=== PATIENT | male | born 1990 | race Caucasian/White ===

== ENCOUNTER → 2020-03-10 08:00 | Outpatient (CLI) | payer OTHER | END | disposition home or self-care (01) | LOC: PPH VACUNA 08:00 | DX: Z23 Encounter for immunization (principal) ==

== ENCOUNTER 2020-12-12 07:00 | Outpatient (CLI) | payer OTHER | END 2020-12-12 07:25 | disposition home or self-care (01) | LOC: PPH VACUNA 07:00 | PROVIDERS: ATTEND Emergency Medicine Pediatric Emergency Medicine | DX: Z23 Encounter for immunization (principal) ==

== ENCOUNTER 2021-01-28 09:00 | Outpatient (CLI) | payer OTHER | END 2021-01-28 09:15 | disposition home or self-care (01) | LOC: PPH VACUNA 09:00 | PROVIDERS: ATTEND Emergency Medicine Pediatric Emergency Medicine | DX: Z23 Encounter for immunization (principal) ==

== ENCOUNTER 2021-02-04 06:17 | Outpatient (CLI) | payer OTHER | END 2021-02-04 06:19 | disposition home or self-care (01) | LOC: LAB 06:17 | DX: E23.0 Hypopituitarism (principal); E78.2 Mixed hyperlipidemia; R94.6 Abnormal results of thyroid function studies ==

== ENCOUNTER 2021-11-11 08:33 | Outpatient (CLI) | payer OTHER | END 2021-11-11 08:38 | disposition home or self-care (01) | LOC: PPH VACUNA 08:33 | PROVIDERS: ATTEND Emergency Medicine Pediatric Emergency Medicine | DX: Z23 Encounter for immunization (principal) ==

== ENCOUNTER 2022-02-03 06:38 | Outpatient (CLI) | payer OTHER | END 2022-02-03 06:39 | disposition home or self-care (01) | LOC: LAB 06:38 | DX: E23.0 Hypopituitarism (principal); E78.2 Mixed hyperlipidemia; E53.8 Deficiency of other specified B group vitamins; E55.9 Vitamin D deficiency, unspecified ==

== ENCOUNTER 2022-06-21 07:29 | Outpatient (CLI) | payer OTHER | END 2022-06-21 07:36 | disposition home or self-care (01) | LOC: LAB 07:29 | DX: E56.8 Deficiency of other vitamins (principal); E53.8 Deficiency of other specified B group vitamins; E23.0 Hypopituitarism ==

== ENCOUNTER 2022-10-14 08:10 | Outpatient (CLI) | payer OTHER | END 2022-10-14 08:20 | disposition home or self-care (01) | LOC: LAB 08:10 | DX: E89.3 Postprocedural hypopituitarism (principal); R73.03 Prediabetes; E78.5 Hyperlipidemia, unspecified ==

== ENCOUNTER 2022-11-19 09:30 | Outpatient (CLI) | payer OTHER | END 2022-11-19 09:40 | disposition home or self-care (01) | LOC: PPH VACUNA 09:30 | PROVIDERS: ATTEND Emergency Medicine Pediatric Emergency Medicine | DX: Z23 Encounter for immunization (principal) ==

== ENCOUNTER 2024-01-02 12:30 | Outpatient (CLI) | payer OTHER | END 2024-01-02 12:45 | disposition home or self-care (01) | LOC: PPH VACUNA 12:30 | PROVIDERS: ATTEND Emergency Medicine Pediatric Emergency Medicine | DX: Z23 Encounter for immunization (principal) ==

== ENCOUNTER 2024-07-15 15:36 | Emergency (ER) | payer OTHER ==
[~2024-07-15] VITALS: Ht 172.7 cm; Wt 81.6 kg
== END 2024-07-15 17:17 | disposition home or self-care (01) ==
LOC: ER 15:36
DX: S92.515A Nondisplaced fracture of proximal phalanx of left lesser toe(s), initial encounter for closed fracture (principal); X58.XXXA Exposure to other specified factors, initial encounter; Y93.89 Activity, other specified; Y92.018 Other place in single-family (private) house as the place of occurrence of the external cause; Y99.9 Unspecified external cause status

== ENCOUNTER 2024-10-19 15:34 | Emergency (ER) | payer OTHER ==
[~2024-10-19] VITALS: Ht 170.2 cm; Wt 84.4 kg
[2024-10-19] MEDS ORDERED: GUAIFENESIN/DEXTROMETHORPHAN 100MG/10ML BLIST.PACK PO ONE (16:15)
[2024-10-19] MEDS ORDERED: CETIRIZINE HCL 5 MG/5 ML ML PO ONE (16:15)
[2024-10-19] MEDS ORDERED: CETIRIZINE HCL 5MG/5ML BLIST.PACK PO ONE (16:19)
[2024-10-19] MEDS ORDERED: GUAIFENESIN 200 MG/10 ML BLIST.PACK PO ONE (16:19)
[2024-10-19 16:25] LABS: BASO % 0.9 % (0.1-1.2); EOS # 0.08 (0.04-0.54); EOS % 0.9 % (0.7-7.0); LYMPH # 1.11 (1.18-3.74); LYMPH % 12.4 % (19.3-53.1); MEAN PLATELET VOLUME 8.90 fl (9.4-12.4); MONO # 1.03 (0.24-0.82); MONO % 11.5 % (4.7-12.5); NEUT # 6.60 (1.56-6.13); NEUT % 73.9 % (34.0-71.1); RED CELL DISTRIBUTION WIDTH 12.0 % (11.6-14.4)
[2024-10-19 17:02] LABS: COVID-19 AG POSITIVE (NEGATIVE)
[2024-10-19] MEDS ORDERED: TUSSIN DM LIQU118 ML PO (17:08)
[2024-10-19] MEDS ORDERED: ZYRTEC10 MG PO (17:08)
== END 2024-10-19 18:00 | disposition home or self-care (01) ==
LOC: ER 15:34
PROVIDERS: General Practice
DX: U07.1 COVID-19 (principal)

== ENCOUNTER 2025-01-10 15:40 | Outpatient (CLI) | payer OTHER ==
[~2025-01-10 15:40] MED LIST: TUSSIN DM LIQU118 ML PO; ZYRTEC10 MG PO
== END 2025-01-10 15:50 | disposition home or self-care (01) ==
LOC: PPH VACUNA 15:40
PROVIDERS: ATTEND Emergency Medicine Pediatric Emergency Medicine
DX: Z23 Encounter for immunization (principal)